=== PATIENT | female | born 1965 | race Caucasian/White ===

== ENCOUNTER 2016-08-16 07:34 | Day surgery (SDC) | payer MEDICARE, MEDICAID ==
[~2016-08-16] VITALS: Ht 162.6 cm; Wt 76.8 kg
--- NOTE | 2016-08-17 08:27 | OR ---
ADMIT: 08/16/2016 RM/LOC: [facility] MR#: [id number] [id number] SHIVANI DEGROOT [address] [place] [address] Operative/Delivery Room Report SEX: F AGE: 50 : 1965 SURGERY DATE: 08/16/2016 SURGEON: Loly Munroe MD PRIMARY TEACHER: None. PREPROCEDURE DIAGNOSES: 1. Bilateral sacroiliac joint dysfunction. 2. Chronic low back pain. POSTPROCEDURE DIAGNOSES: 1. Bilateral sacroiliac joint dysfunction. 2. Chronic low back pain. PROCEDURE PERFORMED: Bilateral sacroiliac joint injection. INDICATIONS FOR PROCEDURE: The patient is a pleasant female with history of chronic low back pain secondary to above mentioned diagnoses, comes here for planned bilateral SI joint injection. ANESTHESIA: Local without sedation. ESTIMATED BLOOD LOSS: Zero. COMPLICATIONS: None immediately evident. DESCRIPTION OF PROCEDURE: After the patient was seen in the preoperative area, vitals signs were taken. Prior to the procedure, the risks, benefits, and alternative therapies were discussed at length. Patient consent was obtained and updated. The patient was taken to the fluoroscopy suite and placed on the fluoroscopy table in the prone position. Pressure points were padded to comfort, monitors applied, and a timeout performed. C-arm was brought in to identify the right SI joint. Lidocaine plain 1%, approximately 2 mL, was used to anesthetize the skin and underlying subcutaneous tissue. A 3.5-inch 22-gauge curved-tip needle was then advanced through the anesthetized skin and placed inside the inferior portion of the SI ADMIT: 08/16/2016 RM/LOC: [facility] MR#: [id number] [address] SHIVANI DEGROOT [address] [place] [address] Operative/Delivery Room Report SEX: F AGE: 50 : 1965 joint. Isovue-300 was injected into the SI joint and showed good spread into the SI joint. After correct placement was confirmed, 5 mL of 0.25% Marcaine and 40 mg of Depo-Medrol were injected. The procedure was then repeated on the left side. The patient tolerated the procedure well without any complications. The patient was then brought to PACU where she recovered nicely. PLAN: The patient was examined after 20 minutes and had 80% reduction of pain. Discharge instructions were given, followup scheduled. The patient was discharged home with a frontload driver. Loly Munroe MD/ chepe JOB #: [id number] CC: Loly Munroe, Attending Physician Danuta Woodson, Family Physician
== END 2016-08-16 09:43 | disposition home or self-care (01) ==
LOC: SSS 07:34
PROC: 3E0U33Z Introduction of Anti-inflammatory into Joints, Percutaneous Approach (ICD-10-PCS; principal; 2016-08-16)
PROC: 3E0U3BZ Introduction of Anesthetic Agent into Joints, Percutaneous Approach (ICD-10-PCS; principal; 2016-08-16)
DX: G89.29 Other chronic pain (principal); M53.3 Sacrococcygeal disorders, not elsewhere classified; M51.26 Other intervertebral disc displacement, lumbar region; M47.816 Spondylosis without myelopathy or radiculopathy, lumbar region; M51.37 Other intervertebral disc degeneration, lumbosacral region; F31.9 Bipolar disorder, unspecified; I10 Essential (primary) hypertension; M79.7 Fibromyalgia; F41.9 Anxiety disorder, unspecified; Z88.1 Allergy status to other antibiotic agents; Z88.8 Allergy status to other drugs, medicaments and biological substances; Z87.891 Personal history of nicotine dependence; Z79.899 Other long term (current) drug therapy; Z90.710 Acquired absence of both cervix and uterus; Z98.51 Tubal ligation status; Z98.890 Other specified postprocedural states